=== PATIENT | male | born 2000 | race African-American/Black ===

== ENCOUNTER 2021-02-22 10:55 | Emergency (ER) | payer SELFPAY ==
[2021-02-22 11:05] VITALS: BP 107/74; PULSE 100; RESP 16; TEMP 36.7; O2SAT 99
[2021-02-22 13:12] LABS: Basophils Absolute Auto 0.1 K/mm3 (0.0-0.1); Basophils Percent Auto 0.6 % (0.2-1.2); Eosinophils Absolute Auto 0.2 K/mm3 (0-0.3); Eosinophils Percent Auto 2.5 % (0-4.4); Hematocrit 44.7 % (42.0-52.0); Hemoglobin 14.4 g/dL (14.0-18.0); Immature Granulocyte Absolute 0.02 K/mm3 (0.00-0.031); Immature Granulocyte Percent A 0.2 % (0-0.5); Lymphocytes Absolute Auto 2.66 K/mm3 (0.9-3.2); Lymphocytes Percent Auto 30.8 % (18.3-44.2); Mean Corpuscular HGB Conc 32.2 g/dl (32-36); Mean Corpuscular Hemoglobin 31.8 pg (26-34); Mean Corpuscular Volume 98.7 fl (80-100); Mean Platelet Volume 9.6 fl (7.4-10.4); Monocytes Absolute Auto 1.1 K/mm3 (0.1-0.6); Monocytes Percent Auto 12.4 % (2.6-8.5); Neutrophils Absolute Auto 4.6 K/mm3 (1.3-6.7); Neutrophils Percent Auto 53.5 % (45.5-73.1); Platelet Count Result 377 k/mm3 (150-375); Red Blood Count 4.53 M/mm3 (4.6-6.20); Red Cell Distribution Width 11.2 % (11.5-14.5); White Blood Count 8.6 K/mm3 (4.5-10.0)
[2021-02-22 13:19] LABS: Add Urine Microscopic? YES; Appearance Urine Clear (Clear); Bacteria Urine Trace /hpf; Bilirubin Urine Negative (Negative); Blood Urine Negative (Negative); Color Urine Yellow (Yellow); Glucose Urine UA 3+ mg/dL (Negative); Ketones Urine Negative (Negative); Leukocyte Esterase Ur Negative LEU/UL (Negative); Mucus Urine Few /lpf; Nitrate Urine Negative (Negative); Protein Urine 1+ mg/dL (Negative); RBC Urine 0-2 /hpf (0-2); Specific Grav Ur 1.023 (1.001-1.035)
[2021-02-22 13:27] LABS: Alanine Aminotransferase 13 U/L (4-50); Albumin Level 4.2 g/dL (3.5-5.1); Alkaline Phosphatase 55 U/L (38-126); Anion Gap 5 mmol/L (8-16); Aspartate Amino Transferase 25 U/L (17-59); Bilirubin,Total 1.9 mg/dL (0.2-1.3); Blood Urea Nitrogen 14 mg/dL (9-20); Calcium 9.4 mg/dL (8.4-10.2); Carbon Dioxide 32 mmol/L (22-30); Chloride 105 mmol/L (98-107); Estimated CRCL calculation 106 ml/min; Estimated Glomerular Filt Rate > 60; Glucose 51 mg/dL (75-110); Potassium 3.7 mmol/L (3.4-5.0); Sodium 142 mmol/L (137-145)
[2021-02-22 13:41] LABS: Glucose Point of Care 83 mg/dl (65-105)
--- NOTE | 2021-02-22 14:07 | ED.GENADULT ---
HPI - General Adult General Chief complaint: Unspecified Stated complaint: GEE, body aches Time Seen by Provider: 02/22/21 12:02 Source: patient Mode of arrival: ambulatory Limitations: no limitations History of Present Illness HPI narrative: Patient is a 20 year old male who presents with multiple complaints. He reports intermittent body aches and migraine headaches x 1 month. He reports migraines resolve rather quickly, most of the time . He denies use of otc medications for pain or relief. He denies significant medical history. He does report that mother had a hx of Lupus and passed in 2019 from complications. He denies fever, Covid exposure, cough, nausea, vomiting, diarrhea or other complaints. Patient is alert and oriented x 3 at this time. Vital signs stable. Related Data Allergies Allergy/AdvReac Type Severity Reaction Status Date / Time No Known Allergies Allergy Verified 02/22/21 11:21 Course Course Emergency Course: Patient left without telling staff. Vital Signs Vital signs: Vital Signs Temperature 36.7 C 02/22/21 11:05 Pulse Rate 100 02/22/21 11:05 Respiratory Rate 16 02/22/21 11:05 Blood Pressure 107/74 02/22/21 11:05 Pulse Oximetry 99 02/22/21 11:05 Temperature 36.7 C 02/22/21 11:05 Pulse Rate 100 02/22/21 11:05 Respiratory Rate 16 02/22/21 11:05 Blood Pressure 107/74 02/22/21 11:05 Pulse Oximetry 99 02/22/21 11:05 Medical Decision Making MDM Narrative Medical decision making narrative: Patient left without informing staff. Vital Signs Vital Signs: Vital Signs Temperature 36.7 C 02/22/21 11:05 Pulse Rate 100 02/22/21 11:05 Respiratory Rate 16 02/22/21 11:05 Blood Pressure 107/74 02/22/21 11:05 Pulse Oximetry 99 02/22/21 11:05 Temperature 36.7 C 02/22/21 11:05 Pulse Rate 100 02/22/21 11:05 Respiratory Rate 16 02/22/21 11:05 Blood Pressure 107/74 02/22/21 11:05 Pulse Oximetry 99 02/22/21 11:05 Lab Data Result diagrams: 02/22/21 12:55 02/22/21 12:55 Labs: Lab Results 02/22/21 02/22/2121 Range/Units 12:55 12:55 13:03 WBC 8.6 (4.5-10.0) K/mm3 RBC 4.53 L (4.6-6.20) M/mm3 Hgb 14.4 (14.0-18.0) g/dL Hct 44.7 (42.0-52.0) % MCV 98.7 (80-100) fl MCH 31.8 (26-34) pg MCHC 32.2 (32-36) g/dl RDW 11.2 L (11.5-14.5) % Plt Count 377 H (150-375) k/mm3 MPV 9.6 (7.4-10.4) fl Immature Gran % (Auto) 0.2 (0-0.5) % Neut % (Auto) 53.5 (45.5-73.1) % Lymph % (Auto) 30.8 (18.3-44.2) % [place] % (Auto) 12.4 H (2.6-8.5) % Eos % (Auto) 2.5 (0-4.4) % Baso % (Auto) 0.6 (0.2-1.2) % Lymph # (Auto) 2.66 (0.9-3.2) K/mm3 [place] # (Auto) 1.1 H (0.1-0.6) K/mm3 Eos # (Auto) 0.2 (0-0.3) K/mm3 Baso # (Auto) 0.1 (0.0-0.1) K/mm3 Abs Immat Gran (auto) 0.02 (0.00-0.031) K/mm3 Absolute Neuts (auto) 4.6 (1.3-6.7) K/mm3 Absolute Nucleated RBC 0.0 (0.0-0.012) K/mm3 Nucleated RBC % 0.0 (0.0-0.2) % Sodium 142 (137-145) mmol/L Potassium 3.7 (3.4-5.0) mmol/L Chloride 105 (98-107) mmol/L Carbon Dioxide 32 H (22-30) mmol/L Anion Gap 5 L (8-16) mmol/L BUN 14 (9-20) mg/dL Creatinine 0.90 (0.7-1.3) mg/dL Estim Creat Clear Calc 106 ml/min Estimated GFR > 60 (59 - ) Glucose 51 L* (75-110) mg/dL POC Capillary Glucose (65-105) mg/dl Calcium 9.4 (8.4-10.2) mg/dL Total Bilirubin 1.9 H (0.2-1.3) mg/dL AST 25 (17-59) U/L ALT 13 (4-50) U/L Alkaline Phosphatase 55 (38-126) U/L Total Protein 8.0 (6.3-8.2) g/dL Albumin 4.2 (3.5-5.1) g/dL Urine Color Yellow (Yellow) Urine Appearance Clear (Clear) Urine pH 6.0 (5.0-9.0) Ur Specific [place] 1.023 (1.001-1.035) Urine Protein 1+ H (Negative) mg/dL Urine Glucose (UA) 3+ H (Negative) mg/dL Urine Ketones Negative (Negative) mg/dL Ur Blood (Man) Negative (Nega
--- NOTE | 2021-02-22 15:05 | PC.NURSE ---
PT NOT FOUND IN ROOM, IN WAITING ROOM OR OUTSIDE. ATTEMPTED TO CALL PT'S CELL PHONE X2. FIRST TIME PT ANSWERED BUT HUNG UP. SECOND TIME WENT TO VOICE MAILBOX THAT WASN'T SET UP.
== END 2021-02-22 15:05 | disposition left against medical advice (07) ==
PROVIDERS: Emergency Provider Nurse Practitioner
DX: G43.909 Migraine, unspecified, not intractable, without status migrainosus (principal)
CPT/HCPCS: 36415; 80053; 81001; 82948; 85025; 99283

== ENCOUNTER 2021-04-18 15:48 | Emergency (ER) | payer OTHER, SELFPAY ==
[2021-04-18 16:50] VITALS: BP 106/60; PULSE 84; RESP 18; TEMP 36.9; O2SAT 100
--- NOTE | 2021-04-18 18:38 | ED.GENADULT ---
HPI - General Adult General Chief complaint: Upper Respiratory Infection Stated complaint: wants to be checked for COVID Time Seen by Provider: 04/18/21 18:38 History of Present Illness HPI narrative: Patient is a 21-year-old male otherwise healthy who comes to the emergency room today complaining of loss of taste and smell, sinus congestion, cough, shortness of breath, body aches, fatigue. Symptoms started 3 days ago. Symptoms seem to be improving other than the shortness of breath. Denies any lower extremity edema or chest pain or nausea or vomiting. Related Data Home Medications Medication Instructions Recorded Confirmed No Home Medications 04/18/21 04/18/21 Allergies Allergy/AdvReac Type Severity Reaction Status Date / Time No Known Allergies Allergy Verified 04/18/21 18:25 Review of Systems Constitutional: Constitutional: Reports as per HPI, Reports chills, Reports fatigue, Denies fever(s), Reports headache(s), Denies night sweats and Denies weakness ENT: Reports as per HPI Cardiovascular: Cardiovascular: Denies chest pain, Denies edema, Denies leg edema, Denies dyspnea and Denies orthopnea Respiratory: Respiratory: Denies cough and Reports dyspnea Gastrointestinal: Gastrointestinal: Denies abdominal pain, Denies constipation, Denies diarrhea, Denies nausea and Denies vomiting Musculoskeletal: Musculoskeletal: Denies abnormal gait, Denies back pain, Denies numbness and Denies tingling Neurologic: Denies Abnormal speech present, Denies abnormal gait, Denies numbness, Denies tingling and Denies weakness Psychiatric: Psychiatric: Denies homicidal ideation and Denies suicidal ideation [facility] Social History Social History Gender identity (if verbalized by the patient): Male Exam Const: General: cooperative, healthy appearing, comfortable, no acute distress, well developed, alert, awake and Physically active Orientation/consciousness: patient oriented x3 Other: Pleasant, well-appearing, no distress HENMT: Head: normal to inspection, normocephalic and atraumatic Ears: external ears normal General nose exam: Normal external nose present Eyes: Pupils: Equal, round and reactive pupils present EOM: EOMs intact bilaterally Neck: Neck: normal visual inspection Chest: Chest palpation & inspection: normal inspection of the chest and no tenderness Resp: Effort & Inspection: normal respiratory effort and able to speak in complete sentences Auscultation: clear to auscultation bilaterally Cardio: Rate: regular rate Rhythm: regular rhythm GI: Inspection: normal to inspection GI Palp: No abdominal tenderness : General: Yes no CVA tenderness Back/Spine/Pelvis: Back: no CVA tenderness Skin: General skin exam: normal color and no rashes or lesions noted Lesions: no lesions Neuro: General: patient oriented x3, no focal motor deficits and CN's II-XI intact bilaterally Cranial nerves: Yes Equal, round and reactive pupils present Speech: No Abnormal speech present Extrem: General: normal to inspection and full ROM Psych: Appearance: grossly normal and well kempt Mental Status: mental status grossly normal Speech and movement: Normal speech and movement present Affect: normal affect Thought process: Normal thought process present Course Course Emergency Course: 1899 Discussed with patient that his symptoms are consistent with COVID-19. He would like to be checked and I expect it will be positive. If that is negative I be concerned that it is a false negative. He says he is feeling short of breath. I gave him some reassurance that his lungs sound great and he is satting 100%. We agreed on plan for discharge home with supportive care and return precautions with any new or worsening symptoms. Vital Signs Vital signs: Vital Signs Temperature 36.9 C 04/18/21 16:50 Pulse Rate 84 04/18/21 16:50 Respiratory Rate 18 04/18/21 16:50 Blood Pressure 106/60 04/18/21 16:50 Pulse Oximetry 100
[2021-04-18] MEDS: ACETAMINOPHEN 500 MG TABLET 1000 MG PO (19:36)
[2021-04-20 02:03] LABS: SARS-CoV-2 RNA PCR Positive
== END 2021-04-18 19:40 | disposition home or self-care (01) ==
PROVIDERS: Physician Assistant Medical; Emergency Provider Emergency Medicine
DX: U07.1 COVID-19 (principal)
CPT/HCPCS: 99283; A9270; C9803; U0003; U0005

== ENCOUNTER 2022-01-05 14:22 | Emergency (ER) | payer SELFPAY ==
[2022-01-05 14:32] VITALS: BP 112/74; PULSE 100; RESP 18; TEMP 36.8; O2SAT 100
--- NOTE | 2022-01-05 14:59 | ED.GENADULT ---
HPI - General Adult General Chief complaint: Urogenital-Male <Bonnie Wylie PA-C - Last Filed: 01/05/22 20:02> Stated complaint: STD <GIANCARLO Aceves Last Filed: 01/05/22 20:02> Time Seen by Provider: 01/05/22 14:42 <GIANCARLO Aceves Last Filed: 01/05/22 20:02> Source: patient <GIANCARLO Aceves Last Filed: 01/05/22 20:02> Mode of arrival: ambulatory <GIANCARLO Aceves Last Filed: 01/05/22 20:02> Limitations: no limitations <GIANCARLO Aceves Filed: 01/05/22 20:02> History of Present Illness HPI narrative: Patient is a 21 y/o male who presents to the ED with c/o STD exposure. Patient reports he had sexual intercourse with a female 3 days ago and was notified by her yesterday that she tested positive for chlamydia. He has come here wanting testing and treatment. Patient denies any symptoms. No dysuria, hematuria, urinary frequency, fever, chills, nausea, vomiting, abdominal pain, penile discharge, genital lesions, testicular pain or swelling. <GIANCARLO Aceves Last Filed: 01/05/22 20:02> Related Data Home medications: Home Medications Medication Instructions Recorded Confirmed No Home Medications 04/18/21 04/18/21 <GIANCARLO Aceves Last Filed: 01/05/22 20:02> Allergies/adverse reactions: Allergies Allergy/AdvReac Type Severity Reaction Status Date / Time No Known Allergies Allergy Verified 12/03/21 16:27 <GIANCARLO Aceves Last Filed: 01/05/22 20:02> Review of Systems Review of Systems: CONSTITUTIONAL: Denies fever, chills. CARDIOVASCULAR: Denies chest pain. RESPIRATORY: Denies dyspnea. GASTROINTESTINAL: Denies abdominal pain, nausea, vomiting. GENITOURINARY: Denies urinary frequency, penile discharge, penile lesions, testicular pain or swelling, dysuria, or hematuria. SKIN: Denies rash or itching. MUSCULOSKELETAL: Denies back pain. <Bonnie Wylie PA-C - Last Filed: 01/05/22 20:02> All systems reviewed & are unremarkable except as noted in HPI and below <Bonnie Wylie PA-C - Last Filed: 01/05/22 20:02> PMFSH Past Medical History Medical History: Medical History (Updated 01/06/22 @ 00:00 by Ruba Tineo) No pertinent past medical history <Bonnie Wylie PA-C - Last Filed: 01/05/22 20:02> Surgical History Surgical History: Surgical History (Updated 01/05/22 @ 15:03 by Bonnie Wylie PA-C) No pertinent past surgical history <Bonnie Wylie PA-C - Last Filed: 01/05/22 20:02> Social History Social History: Social History (Updated 01/05/22 @ 15:03 by Bonnie Wylie PA-C) Smoking status: Never smoker Gender identity (if verbalized by the patient): Male <Bonnie Wylie PA-C - Last Filed: 01/05/22 20:02> Exam Narrative: GENERAL: Well appearing, well-nourished, non-toxic, in no acute distress. RESPIRATORY: Airway patent, respirations nonlabored. Clear to auscultation bilaterally, no rales, rhonchi, wheezing. CARDIOVASCULAR: Regular rate and rhythm without murmurs, rubs, or gallops. Radial pulses 2+ and equal bilaterally. ABDOMINAL: Soft, nontender, nondistended, no hepatosplenomegaly. Normoactive BS. MUSCULOSKELETAL: Moves all extremities. Strength/ROM intact without gross deformities. SKIN: Warm, dry, normal color. No rashes. NEURO: A&O X3. Speech clear. Cranial nerves II-XII grossly intact. Steady gait. No ataxic movements. PSYCHIATRIC: Appropriate mood and affect. Normal interaction. <Bonnie Wylie PA-C - Last Filed: 01/05/22 20:02> Course [employer] VENDOR/PA Physician Supervision For this patient encounter, I reviewed the MARKET STALL VENDOR or PA documentation, treatment plan, and medical decision making <Nithin Lipscomb MD - Last Filed: 01/11/22 07:09> Vital Signs Vital signs: Vital Signs Temperature 98.3 F 01/05/22 14:32 Pulse Rate 100 01/05/22 14:32 Respiratory Rate 18 01/05/22 14:32 Blood Pressure 112/74 01/05/22 14:32 Pulse Oximetry 100
[2022-01-05] MEDS: cefTRIAXone 1 GM VIAL 0.5 GM IM (15:39)
[2022-01-05] MEDS: WATER, STERILE FOR INJECTION 10 ML VIAL XX (15:43)
[2022-01-05 16:00] LABS: Add Urine Microscopic? YES; Appearance Urine Clear (Clear); Bilirubin Urine Negative (Negative); Blood Urine Negative (Negative); Color Urine Yellow (Yellow); Glucose Urine UA Negative (Negative); Ketones Urine Negative (Negative); Leukocyte Esterase Ur Negative LEU/UL (Negative); Mucus Urine Rare /lpf; Nitrate Urine Negative (Negative); Protein Urine Negative (Negative); RBC Urine 0-2 /hpf (0-2); Specific Grav Ur 1.018 (1.001-1.035); WBC Urine 0-3 /hpf
== END 2022-01-05 16:37 | disposition home or self-care (01) ==
PROVIDERS: Physician Assistant; Emergency Provider Emergency Medicine
DX: Z20.2 Contact with and (suspected) exposure to infections with a predominantly sexual mode of transmission (principal)
CPT/HCPCS: 81001; 87491; 87591; 96372; 99283; J0696